=== PATIENT | male | born 1945 | race Caucasian/White ===

== ENCOUNTER 2018-01-25 10:17 | Day surgery (SDC) | payer MEDICARE, OTHER ==
[~2018-01-25] VITALS: Ht 170.2 cm; Wt 97.7 kg
[~2018-01-25 10:17] MED LIST: ASPIRIN E.C. 8181 MG PO; BP med
[2018-01-25 10:36] LABS: HEMATOCRIT 47.7 % (42.0-52.0); HEMOGLOBIN 15.8 g/dl (13.5-18.0); MEAN CELL VOLUME 89 fl (80.0-100.0); MEAN CORPUSCULAR HEMOGLOBIN 29 pg (27.0-31.0); MEAN CORPUSCULAR HGB CONC 33 g/dl (33.0-37.0); MEAN PLATELET VOLUME 9.5 fl (7.4-10.4); PLATELET COUNT 261 K/mm3 (130-400); RED BLOOD COUNT 5.37 M/mm3 (4.20-5.60); REDCELL DISTRIBUTION WIDTH-CV 13.5 % (11.5-14.5)
[2018-01-25 10:44] LABS: INR 1.1 (0.8-3.0); PROTHROMBIN TIME 12.8 SECONDS (9.7-12.8)
[2018-01-25 10:47] LABS: CALCIUM 9.2 mg/dL (8.4-10.2); CREATININE, serum 1.02 mg/dL (0.66-1.25); POTASSIUM 4.1 mmol/L (3.4-5.0)
[2018-01-25 10:52] VITALS: BP 134/89; PULSE 96
[2018-01-25] MEDS ORDERED: NORVASC 10MG10 MG PO (10:52)
[2018-01-25] MEDS ORDERED: LOPRESSOR 225 MG/TAB PO (10:52)
[2018-01-25] MEDS ORDERED: XARELTO20 MG PO (10:53)
[2018-01-25] MEDS ORDERED: MULTAQ400 MG PO (11:12)
[2018-01-25 11:15] VITALS: BP 112/77; PULSE 95
[2018-01-25 11:25] VITALS: BP 90/82; PULSE 79
[2018-01-25 11:35] VITALS: BP 119/90; PULSE 92
[2018-01-25 11:45] VITALS: BP 117/82; PULSE 60
[2018-01-25 12:00] VITALS: BP 116/75; PULSE 89
== END 2018-01-25 12:41 | disposition home or self-care (01) ==
LOC: COL.CAR 10:17
PROVIDERS: Internal Medicine Cardiovascular Disease
DX: I48.0 Paroxysmal atrial fibrillation (principal); E78.2 Mixed hyperlipidemia; I10 Essential (primary) hypertension; Z79.82 Long term (current) use of aspirin; Z79.01 Long term (current) use of anticoagulants
CPT/HCPCS: J2250; J3010; J7030

== ENCOUNTER 2018-01-28 11:22 | Day surgery (SDC) | payer MEDICARE, OTHER ==
[2018-01-28] VITALS (7 sets, daily range): BP systolic 112–144; BP diastolic 80–95; PULSE 58–89; TEMP 97.6–97.7
[~2018-01-28] VITALS: Ht 170.3 cm; Wt 99.0 kg
[~2018-01-28 11:22] MED LIST changes: +LOPRESSOR 225 MG/TAB PO; +MULTAQ400 MG PO; +NORVASC 10MG10 MG PO; +XARELTO20 MG PO
[2018-01-28] MEDS ORDERED: MULTAQ400 MG PO (12:13)
[2018-01-28 12:18] LABS: INR 1.4 (0.8-3.0); PROTHROMBIN TIME 15.5 SECONDS (9.7-12.8)
[2018-01-28 12:20] LABS: POTASSIUM 4.3 mmol/L (3.4-5.0)
[2018-01-28 12:55] LABS: THYROID STIMULATING HORMONE 1.88 uIU/mL (0.465-4.680)
== END 2018-01-28 16:00 | disposition home or self-care (01) ==
LOC: COL.CAR 11:22
PROVIDERS: Internal Medicine Cardiovascular Disease
DX: I48.0 Paroxysmal atrial fibrillation (principal); I10 Essential (primary) hypertension; E78.2 Mixed hyperlipidemia; Z79.82 Long term (current) use of aspirin; Z79.01 Long term (current) use of anticoagulants
CPT/HCPCS: J2250; J3010; J7030